=== PATIENT | female | born 1965 | race Caucasian/White ===

== ENCOUNTER 2019-03-09 15:00 | Outpatient (CLI) | payer MEDICARE, MEDICAID ==
[2016-03-08 13:20] VITALS: BMI 30.1
[~2019-03-09 15:00] MED LIST: BAYER CHEWABLE81 MG PO; CELEXA10 MG PO; CHANTIX0.5 MG PO; CLARITIN 10 MG10 MG PO; CRESTOR40 MG PO; CYCLOBENZAPRINE10 MG PO; FAMOTIDINE10 MG PO; FLUTICASONE PRO16 GM NASAL; HYDROCODONE-APA1 TAB PO; LINZESS145 MCG PO; PROAIR HFA8.5 GM INH
== END 2019-03-09 16:00 | disposition home or self-care (01) ==
LOC: D.MAMMO 15:00
PROVIDERS: ATTEND Nurse Practitioner
DX: Z12.31 Encounter for screening mammogram for malignant neoplasm of breast (principal)

== ENCOUNTER 2020-02-05 06:18 | Day surgery (SDC) | payer MEDICARE, MEDICAID ==
[2020-02-03 09:21] LABS: BASOPHILS 0.1 % (0-2); EOSINOPHILS 1.9 % (0-7); HEMATOCRIT 42.1 % (36.0-48.0); HEMOGLOBIN 13.9 g/dL (12-16); IMMATURE GRANULOCYTES 0.1 % (0-5); LYMPHOCYTES 33.2 % (15-50); MONOCYTES 7.2 % (2-11); NEUTROPHILS 57.5 % (40-80); PLATELET COUNT 249 10x3/uL (130-400); RBC 4.34 10x6/uL (4.00-5.40); RDW 13.3 % (11.5-14.5); WBC 6.7 10x3/uL (4.8-10.8)
[~2020-02-05] VITALS: Ht 152.4 cm; Wt 66.7 kg
--- NOTE | ~2020-02-05 | OP ---
PATIENT NAME: BRANDI MEEHAN MEDICAL RECORD: [id number] :65 LOCATION:[facility] ADMISSION DATE: SURGEON: RORY RUIZ MD DATE OF OPERATION: 02/05/2020 PREOPERATIVE DIAGNOSES: 1. Endometrial thickening on ultrasound. 2. Postmenopausal bleeding. POSTOPERATIVE DIAGNOSES: 1. Cervical stenosis. 2. Atrophic-appearing endometrium. PROCEDURE: Hysteroscopy, D&C. SURGEON: Rory Ruiz MD ANESTHESIA: General endotracheal. INTRAVENOUS FLUIDS: Per anesthesia records. HYSTEROSCOPIC FLUID LOSS: 100 cc of 0.9 normal saline. ESTIMATED BLOOD LOSS: Minimal. SPECIMENS: Included endometrial curettings. FINDINGS: 1. Cervical stenosis. 2. Atrophic appearing endometrial and endocervical canals. PROCEDURE IN DETAIL: The patient was taken to the operating room where general anesthesia was achieved without any difficulty. The patient was prepped and draped in normal fashion in the dorsal lithotomy position in the [facility]. At this point, the patient was prepped and draped and the bladder drained of approximately 250 cc of clear yellow urine. At this point, the Graves speculum was placed in the vagina and the cervix was identified and grasped on its anterior lip with a single tooth tenaculum. The cervix was found to be stenotic and through gentle dilation the cervix was found to be dilated without any difficulty to approximately 6-7 mm. At this point, the hysteroscope was introduced into the cervix and entry into the endometrial cavity was obtained without any difficulty. No evidence of perforation was noted. At this point, following removal of the hysteroscope, the patient was further dilated to approximately 8-mm in order to accommodate a #1 curette, which was then used to perform curettage of all 4 quadrants of the uterus. Only minimal bleeding was noted and the tenaculum was removed. The patient tolerated the procedure well, was transported to postanesthesia recovery stable without incident. 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
[~2020-02-05 06:18] MED LIST changes: +CELEXA40 MG PO; +ZYRTEC10 MG PO
[2020-02-05] MEDS ORDERED: CYCLOBENZAPRINE10 MG PO (06:49)
[2020-02-05 06:51] VITALS: BP 131/81; Ht 152.4 cm; Wt 66.7 kg
[2020-02-05 06:56] LABS: HCG URINE NEGATIVE (NEGATIVE)
--- NOTE | 2020-02-05 07:03 | NUR ---
DR UGALDE NOTIFIED OF PT's ASSESSMENT RESULTS AND BEHAVIOR. PT IS ALOW RISK PER DR UGALDE. DR UGALDE STATED TO GIVE RESOURCES TO PT AT TIME OF DISCHARGE. NO FURTHER ORDERS AT THIS TIME.. REVIEWED RESOURCES WITH PT AND SHE VERBALIZED UNDERSTANTING.
--- NOTE | 2020-02-05 10:05 | NUR ---
PAGED DR LOW FOR DISCHARGE ORDERS
--- NOTE | 2020-02-05 13:09 | NUR ---
1048-AMBULATED TO RESTROOM AND VOIDED WITHOUT COMPLICATIONS. VSS.TOLERATED FULL LIQUID TRAY. REMOVED IV WITH CATH INTACT,DISPOSED INTO SHARPS,COVERED SITE WITH GUAZE,SECURED WITH MEDIPORE TAPE. REVIEWED POST OPERATIVE INSTRUCTIONS. PT HAS FOLLOW UP ALREADY SCHEDULED
--- NOTE | 2020-02-05 13:12 | NUR ---
1110-ESCORTED PT OUT VIA W/C WITH SISTER AWAITING TO DRIVE HOME
== END 2020-02-05 11:10 | disposition home or self-care (01) ==
LOC: D.PAN 06:18 → D.OPS 07:30 → D.PAN 07:30
PROVIDERS: ATTEND Obstetrics & Gynecology
DX: D44.7 Neoplasm of uncertain behavior of aortic body and other paraganglia (principal); J45.909 Unspecified asthma, uncomplicated; Z72.0 Tobacco use; R93.89 Abnormal findings on diagnostic imaging of other specified body structures; N88.2 Stricture and stenosis of cervix uteri